=== PATIENT | male | born 1955 | race Two or more races ===

== ENCOUNTER 2020-11-30 12:52 | Outpatient (CLI) | payer OTHER | END 2020-11-30 13:54 | disposition home or self-care (01) | LOC: OFIC 805 12:52 | PROVIDERS: ATTEND Otolaryngology Otology & Neurotology | DX: H69.83 Other specified disorders of Eustachian tube, bilateral (principal); H93.8X1 Other specified disorders of right ear; J31.0 Chronic rhinitis ==

== ENCOUNTER 2020-12-08 11:42 | Outpatient (CLI) | payer OTHER | END 2020-12-08 11:45 | disposition home or self-care (01) | LOC: LAB 11:42 | PROVIDERS: ATTEND Urology | DX: R97.20 Elevated prostate specific antigen [PSA] (principal) ==

== ENCOUNTER 2020-12-30 07:15 | Outpatient (CLI) | payer OTHER | END 2020-12-30 07:25 | disposition home or self-care (01) | LOC: SONOGRAMA 07:15 | PROVIDERS: ATTEND Urology | DX: C61 Malignant neoplasm of prostate (principal); D12.9 Benign neoplasm of anus and anal canal; R97.20 Elevated prostate specific antigen [PSA] ==

== ENCOUNTER 2024-01-17 07:23 | Outpatient (CLI) | payer OTHER | END 2024-01-17 07:32 | disposition home or self-care (01) | LOC: SONOGRAMA 07:23 | PROVIDERS: ATTEND Urology | DX: N40.1 Benign prostatic hyperplasia with lower urinary tract symptoms (principal); R97.20 Elevated prostate specific antigen [PSA] ==